=== PATIENT | female | born 1995 | race Caucasian/White ===

== ENCOUNTER 2018-01-17 13:29 | Emergency (ER) | payer OTHER ==
[2018-01-17] MEDS ORDERED: NS(*) 0.9% 1000 ML BAG 1,000 ML IV ONE (13:43)
[2018-01-17] MEDS ORDERED: fentaNYL CITR 100 MCG/2 ML AMP IVP ONE (13:45)
[2018-01-17] MEDS ORDERED: LEVO50TA86 PO (13:46)
--- NOTE | 2018-01-17 14:17 | ER Report ---
History and Physical Time Seen By MD: 13:50 Hx. of Stated Complaint: PT PRESENTS WITH HX OF BEING BUCKED OFF HORSE WHILE MOVING CATTLE AT 0830 TODAY. SHE WAS ABLE TO GET BACK ON AND RODE FOR 45 MIN, STARTED TO GET NAUSEATED, AND WAS BROUGHT TO CLINIC IN [place]. PT HAD A SHORT PERIOD OF UNCONSCIOUSNESS AT SCENE HPI/ROS CHIEF COMPLAINT: Fell off horse HISTORY OF PRESENT ILLNESS: Patient is a 22-year-old female who was working at a ranch riding a horse. Patient was bucked off the horse. She was not wearing a helmet. She did strike her head there was no loss of consciousness but patient is complaining of headache and has had multiple episodes of vomiting. Planning of some right ankle pain. Patient was seen in the hospital and wall in [place] head x-ray of her ankle that was reported to be negative. But because of the persistent headache and vomiting after the head injury she was referred to the emergency department for further evaluation. Patient only complains of headache and nausea at this time. She received 8 mg of IV Zofran, 12.5 mg of IV Phenergan and 50 mg of fentanyl prior to arrival. She denies any neck pain. She denies any numbness or tingling. She denies any chest pain she denies any abdominal pain. Patient is not breast-feeding or . REVIEW OF SYSTEMS: Respiratory: No cough, no dyspnea. Cardiovascular: No chest pain, no palpitations. Gastrointestinal: No vomiting, no abdominal pain. Musculoskeletal: No back pain. Right ankle pain Allergies: Coded Allergies: Penicillins (Verified Allergy, Unknown, 01/17/18) Sulfa (Sulfonamide Antibiotics) (Verified Allergy, Unknown, 01/17/18) Home Meds Reported Medications Levothyroxine Sodium (LEVOTHYROXINE SODIUM) 50 Mcg Tablet, 25 MCG PO QDAY, TAB 01/17/18 Past Medical/Surgical History Noncontributory towards this chief complaint Hx Substance Use Disorder: No Hx Alcohol Use: Yes Constitutional Vital Sign - Last 24 Hours 01/17/18 13:36 Temp 98.7 Pulse 70 Resp 20 B/P (MAP) 107/62 Pulse Ox 100 O2 Delivery Room Air Physical Exam General Appearance: The patient is alert, has no immediate need for airway protection and no signs of toxicity. Eyes: Pupils equal and round no pallor or injection. Extraocular muscles are intact and symmetrical ENT, Mouth: Mucous membranes are moist. Neck is supple no midline C-spine tenderness. Respiratory: There are no retractions, lungs are clear to auscultation. Cardiovascular: Regular rate and rhythm. Gastrointestinal: Abdomen is soft and non tender, no masses, bowel sounds normal. Neurological: GCS of 15 Skin: Warm and dry, no rashes. Musculoskeletal: Neck is supple non tender. Right ankle slightly swollen but normal anatomical alignment noted Extremities are nontender, nonswollen and have full range of motion. Medical Decision Making EKG/Imaging Imaging FACILITY: [facility] PATIENT NAME: Bladimir Sepulveda : 1995 MR: [id number] V: [id number] EXAM DATE: ORDERING PHYSICIAN: VENKATA LOPEZ TECHNOLOGIST: Location: [facility] Patient: Bladimir Sepulveda : 1995 Visit/Account:[id number] Date of Sevice: 01/17/2018 EXAMINATION: Head CT without intravenous contrast HISTORY: Trauma TECHNIQUE: Contiguous axial images were obtained from the skull base to the vertex without intravenous contrast. Sagittal and coronal reformatted images are also submitted. Dose Lowering Technique One of the following dose optimization techniques was utilized in the performance of this exam: Automated exposure control; adjustment of the mA and/ or kV according to the patient's size; or use of an iterative reconstruction technique. Specific details can be referenced in the facility's radiology CT exam operational policy. COMPARISON: None. FINDINGS: Brain volume: Normal. Ventricles: Normal. Acute ischemic changes: None. Hemorrhage: None. Masses / edema: None. Nesbitt-white: Negative. White matter: Normal. Vessels: Negative. Extra-axial: Negative. Calvarium / scalp: Negative. Skull base / visualized face: Negative. Visualized sinuses / orbits: Negative. IMPRESSION: Normal noncontrast head CT without evidence of mass lesion, acute infarct or hemorrhage. Report Dictated By: Jennifer Hernández MD at 01/17/2018 2:42 PM Report E-Signed By: Jennifer Hernández MD at 01/17/2018 2:45 PM WSN:[email or web address] ED Course/Re-evaluation Clinical Indication for ER IV: IV Access ED Course Plan at this time will be CT scan of the head. Decision to Disposition Date: Jan 17, 2018 Decision to Disposition Time: 15:06 Depart Departure Latest Vital Signs Vital Signs Date Time Temp Pulse Resp B/P (MAP) Pulse Ox O2 Delivery O2 Flow Rate FiO2 01/17/18 13:36 98.7 70 20 107/62 100 Room Air Impression: Primary Impression: Brain concussion Condition: Improved Disposition: HOME OR SELF-CARE New Scripts Hydrocodone Bit/Acetaminophen (HYDROCODON-ACETAMINOPHEN 5-325) 1 Each Tablet 1 EACH PO Q4-6H Y for PAIN, #6 TAB 0 Refills TAKE ONE TABLET BY MOUTH EVERY 4-6 HOURS NEEDED FOR PAIN Prov: VENKATA LOPEZ MD 01/17/18 Ondansetron (ZOFRAN ODT) 4 Mg Tab.rapdis 4 MG PO Q8H for Nausea, #20 TAB.SHAINA 0 Refills Prov: VENKATA LOPEZ MD 01/17/18 Patient Instructions: Concussion (DC) Problem Qualifiers Primary Impression: Brain concussion Encounter type: initial encounter Loss of consciousness presence/duration: without LOC Qualified Codes: S06.0X0A - Concussion without loss of consciousness, initial encounter VENKATA LOPEZ MD Jan 17, 2018 14:17
--- NOTE | 2018-01-17 14:49 | RADIOLOGY IMAGING REPORT ---
FACILITY: [facility] PATIENT NAME: Bladimir Sepulveda : 1995 MR: [id number] V: [id number] EXAM DATE: ORDERING PHYSICIAN: VENKATA LOPEZ TECHNOLOGIST: [facility] Patient: Bladimir Sepulveda : 1995 Visit/Account:[id number] Date of Sevice: 01/17/2018 EXAMINATION: Head CT without intravenous contrast HISTORY: Trauma TECHNIQUE: Contiguous axial images were obtained from the skull base to the vertex without intraven ous contrast. Sagittal and coronal reformatted images are also submitted. Dose Lowering Technique One of the following dose optimization techniques was utilized in the performance of this exam: Autom ated exposure control; adjustment of the mA and/or kV according to the patient's size; or use of an i terative reconstruction technique. Specific details can be referenced in the facility's radiology C T exam operational policy. COMPARISON: None. FINDINGS: Brain volume: Normal. Ventricles: Normal. Acute ischemic changes: None. Hemorrhage: None. Masses / edema: None. Nesbitt-white: Negative. White matter: Normal. Vessels: Negative. Extra-axial: Negative. Calvarium / scalp: Negative. Skull base / visualized face: Negative. Visualized sinuses / orbits: Negative. IMPRESSION: Normal noncontrast head CT without evidence of mass lesion, acute infarct or hemorrhage. Report Dictated By: Jennifer Hernández MD at 01/17/2018 2:42 PM Report E-Signed By: Jennifer Hernández MD at 01/17/2018 2:45 PM WSN:[email or web address]
[2018-01-17 15:00] VITALS: BP 95/54
[2018-01-17] MEDS ORDERED: LOR5/325 PO (15:08)
[2018-01-17] MEDS ORDERED: ONDA4TAB PO (15:08)
[2018-01-17] MEDS ORDERED: EMS NS 0.9%(*) 1000 ML BAG 1,000 ML IV ONE (15:10)
== END 2018-01-17 15:30 | disposition home or self-care (01) ==
LOC: ER 13:36
DX: S06.0X0A Concussion without loss of consciousness, initial encounter (principal); V80.010A Animal-rider injured by fall from or being thrown from horse in noncollision accident, initial encounter
CPT/HCPCS: 70450; 96361; 96374; 99284; J3010; J7030